=== PATIENT | male | born 1990 | race Two or more races ===

== ENCOUNTER 2019-11-28 20:16 | Emergency (ER) | payer BC, OTHER ==
[~2019-11-28] VITALS: Ht 170.2 cm; Wt 67.1 kg
[2019-11-28 21:04] VITALS: BP 140/83
[2019-11-29] MEDS ORDERED: cefTRIAXone SOD 1,000 MG VL IM ONE (00:15)
== END 2019-11-29 01:33 | disposition home or self-care (01) ==
LOC: ER 20:18
DX: J02.9 Acute pharyngitis, unspecified (principal); J20.9 Acute bronchitis, unspecified; R11.2 Nausea with vomiting, unspecified
CPT/HCPCS: 71045; 96372; 99283; J0696

== ENCOUNTER 2021-10-04 08:42 | Emergency (ER) | payer BC ==
[~2021-10-04] VITALS: Ht 170.2 cm; Wt 72.6 kg
[2021-10-04 10:31] LABS: Basophils # (auto) 0.1 10 ^3/uL (0-0.2); Basophils % (auto) 0.7 % (0.0-2.0); Eosinophils # (auto) 0.1 10 ^3/uL (0-0.8); Eosinophils % (auto) 0.9 % (0.0-7.0); Hematocrit 40.6 % (41.0-53.0); Hemoglobin 14.1 g/dL (13.5-17.5); Lymphocytes # (auto) 1.4 10 ^3/uL (0.4-5.4); Lymphocytes % (auto) 16.1 % (10.0-50.0); Mean Corpuscular Hemoglobin 29.6 pg (28.0-32.0); Mean Corpuscular Hgb Conc. 34.7 g/dL (32.0-36.0); Mean Corpuscular Volume 85.4 fL (80.0-100.0); Monocytes # (auto) 0.6 10 ^3/uL (0-1.3); Monocytes % (auto) 6.4 % (0.0-12.0); Neutrophils # (auto) 6.8 10 ^3/uL (1.6-8.6); Neutrophils % (auto) 75.9 % (37.0-80.0); Nucleated Red Blood Cells % 0.1 %; Red Blood Cells 4.75 10^6/uL (4.5-5.90); Red Cell Distribution Width 12.6 % (11.8-14.3)
[2021-10-04 10:47] LABS: Albumin 4.3 g/dL (3.4-5.0); Potassium 4.1 mmol/L (3.5-5.1)
[2021-10-04 11:01] LABS: Urine Bacteria NONE SEEN /hpf (None Seen); Urine Blood Negative /uL (Negative); Urine Mucus FEW (None Seen); Urine Specific Gravity 1.017 (1.001-1.035); Urine WBC <1 /hpf (0 - 3)
[2021-10-04 11:02] LABS: BUN/Creatinine Ratio 9.7; Bilirubin, Total 0.5 mg/dL (0.2-1.0); Calcium 9.2 mg/dL (8.5-10.1); Total Protein 8.8 g/dL (6.4-8.2)
[2021-10-04] MEDS ORDERED: ASPirin 81 mg TAB PO ONE (11:15)
[2021-10-04 13:25] VITALS: BP 120/86
== END 2021-10-04 11:38 | disposition home or self-care (01) ==
LOC: ER 08:42
DX: R07.89 Other chest pain (principal)
CPT/HCPCS: 36415; 80053; 81001; 84484; 85025; 93005